=== PATIENT | male | born 1985 | race American Indian/Alaskan Native ===

== ENCOUNTER 2021-02-14 02:11 | Emergency (ER) | payer SELFPAY ==
[2021-02-14] MEDS ORDERED: TETRACAINE 0.5% OPHTH SOLN 4ML OU ONE (02:59)
[2021-02-14] MEDS ORDERED: FLUORESCEIN 1 MG STRIP OP ONE (02:59)
[2021-02-14 03:04] VITALS: BP 149/87
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
[2021-02-14] MEDS ORDERED: SODIUM CHLORIDE 0.9% IRR 500 ML BOTTLE IR ONE (03:51)
[2021-02-14] MEDS ORDERED: SODIUM CHLORIDE IRRI 500 ML 500 ML IR ONE (03:53)
== END 2021-02-14 04:35 ==
LOC: ED 02:11
DX: S00.81XA Abrasion of other part of head, initial encounter (principal); S00.83XA Contusion of other part of head, initial encounter; X58.XXXA Exposure to other specified factors, initial encounter; Y93.89 Activity, other specified; Y92.89 Other specified places as the place of occurrence of the external cause; Y99.8 Other external cause status
CPT/HCPCS: 99282